=== PATIENT | female | born 1975 | race Caucasian/White ===

== ENCOUNTER 2018-03-03 20:05 | Emergency (ER) | payer MEDICAID ==
[2018-03-03] MEDS: DIPHTH/TET/ACEL PERTUSS (ADULT) 0.5 ML VIAL IM (22:04)
[2018-03-03] MEDS: LIDOCAINE 4% CR TOP (22:04)
[2018-03-03] MEDS: HYDROCODONE/APAP (5/325) TAB PO (23:03)
== END 2018-03-03 23:13 | disposition home or self-care (01) ==
LOC: FTE 20:05
DX: S01.01XA Laceration without foreign body of scalp, initial encounter (principal); W20.8XXA Other cause of strike by thrown, projected or falling object, initial encounter; Y92.9 Unspecified place or not applicable; Z23 Encounter for immunization
CPT/HCPCS: 12002; 90471; 90715; 99283-25

== ENCOUNTER 2018-03-08 19:50 | Emergency (ER) | payer MEDICAID | END 2018-03-08 22:57 | disposition home or self-care (01) | LOC: FTE 19:50 | DX: Z48.02 Encounter for removal of sutures (principal) | CPT/HCPCS: 99281; Z7502 ==